=== PATIENT | male | born 1950 | race Caucasian/White ===

== ENCOUNTER 2016-11-02 10:16 | Day surgery (SDC) | payer BC ==
[2016-10-28 09:29] VITALS: BMI 30.2
[~2016-11-02 10:16] MED LIST: LACTATED RINGERS 1,000 ML IV SCH
[2016-11-02] MEDS ORDERED: LIDOCAINE 1% 20 ML VIAL (10MG/ML) FOR IV START INTRADERMA ONE (11:00)
[2016-11-02 11:15] VITALS: RESP 16; TEMP 97.8
[2016-11-02] MEDS ORDERED: PROPOFOL 10 MG/ML 20 ML VIAL IV ONE (12:14)
--- NOTE | 2016-11-02 12:14 | P.GSHP ---
History of Present Illness H&P Date: 11/02/16 Chief Complaint: colon cancer screening Patient here today for colonoscopy. His face she mentions anemia however the patient denies that there are any anemia issues. Denies rectal bleeding or melena. Last colonoscopy 10 years. No family history of colon cancer. Past Medical History Past Medical History: GERD/Reflux, Hyperlipidemia, Hypertension History of Any Multi-Drug Resistant Organisms: None Reported Past Surgical History: Hernia Repair, Orthopedic Surgery Additional Past Surgical History / Comment(s): LEFT LEG ORIF WITH METAL, Past Anesthesia/Blood Transfusion Reactions: No Reported Reaction Past Psychological History: No Psychological Hx Reported Smoking Status: Former smoker Past Alcohol Use History: Occasional Additional Past Alcohol Use History / Comment(s): SMOKED 1PPD FOR 6-7YRS WHEN IN 20'S Past Drug Use History: None Reported - Past Family History Mother Family Medical History: No Reported History Medications and Allergies Home Medications Medication Instructions Recorded Confirmed Type Atorvastatin [Lipitor] 20 mg PO DAILY 08/06/15 11/02/16 History Lisinopril [Zestril] 10 mg PO DAILY 08/06/15 11/02/16 History Pantoprazole Sodium [Protonix] 40 mg PO DAILY 08/06/15 11/02/16 History Allergies Allergy/AdvReac Type Severity Reaction Status Date / Time No Known Allergies Allergy Verified 10/28/16 09:26 Surgical - Exam Vital Signs Temp Pulse Resp BP Pulse Ox 97.8 F 52 L 16 171/88 96 11/02/16 11:13 11/02/16 11:13 11/02/16 11:13 11/02/16 11:13 11/02/16 11:13 Physical exam: General: Well-developed, well-nourished HEENT: Normocephalic, sclerae nonicteric Abdomen: Nontender, nondistended Extremities: No edema Neuro: Alert and oriented Assessment and Plan (1) Colon cancer screening Narrative/Plan: Will proceed with colonoscopy today. Associated risks were reviewed. Status: Acute
--- NOTE | 2016-11-02 12:41 | P.PCN ---
Date of Procedure: 11/02/16 Procedure(s) Performed: PREOPERATIVE DIAGNOSIS: Screening POSTOPERATIVE DIAGNOSIS: Ascending colon polyp PROCEDURE: Colonoscopy with snare polypectomy ANESTHESIA: MAC SURGEON: Tyler Vera M.D. SPECIMENS: Polyp ENDOSCOPIC PROCEDURE: The patient was placed on the endoscopy table in the left decubitus position. The Olympus colonoscope was inserted into the anus and passed under direct visualization to the base of the cecum. The appendiceal orifice was visualized. From that point the scope was slowly withdrawn inspecting all surfaces carefully. There were no neoplastic inflammatory or polypoid lesions throughout the cecum. In the mid ascending colon a small polyp was identified and removed using the snare with cautery technique. The remainder of the ascending, transverse, descending, sigmoid and rectum appeared normal. There was no diverticulosis noted. Digital rectal examination was normal. The patient was taken to the recovery room in stable condition per anesthesia guidelines. RECOMMENDATIONS: Await biopsy results. Anticipate follow-up colonoscopy 5 years.
[2016-11-02 13:54] VITALS: BP 149/80; PULSE 42
== END 2016-11-02 13:46 | disposition home or self-care (01) ==
LOC: ORWHC2ENDO 10:16
PROVIDERS: ATTEND Surgery
DX: Z12.11 Encounter for screening for malignant neoplasm of colon (principal); D12.2 Benign neoplasm of ascending colon; K21.9 Gastro-esophageal reflux disease without esophagitis; I10 Essential (primary) hypertension; E78.5 Hyperlipidemia, unspecified; Z79.899 Other long term (current) drug therapy; Z87.891 Personal history of nicotine dependence
CPT/HCPCS: 88305; 45385; J2704; 99153

== ENCOUNTER 2017-05-22 09:35 | Emergency (ER) | payer MEDICARE, OTHER ==
[2017-05-22 09:38] VITALS: TEMP 97.9
--- NOTE | 2017-05-22 10:26 | ED ---
Recheck HPI - General Chief Complaint: Recheck/Abnormal Lab/Rx Stated Complaint: hypertension Time Seen by Provider: 05/22/17 09:45 Source: patient, RN notes reviewed Mode of arrival: ambulatory Limitations: no limitations - History of Present Illness Initial Comments: This is a 67-year-old male who presents with complaints of elevated blood pressure. He recently had a blood pressure cuff he has been taking it recently and has noted that his been going up. He was notably elevated this morning. He denies any headache dizziness blurry vision nausea vomiting sweats or other symptoms. He is on lisinopril 10 mg daily has been taking 2 tablets last several days. He states is nothing new in his diet or and his daily activity he does drink beer and cocktails not infrequently does drink 1-2 cups of coffee per day he does not smoke. He denies any chest pain from his breath ears chills sweats or other symptoms no focal weakness no headache no blurry vision. - Related Data Home Medications Medication Instructions Recorded Confirmed Lisinopril [Zestril] 10 mg PO DAILY 08/06/15 05/22/17 Pantoprazole Sodium [Protonix] 40 mg PO DAILY 08/06/15 05/22/17 Atorvastatin [Lipitor] 10 mg PO Q48H 05/22/17 05/22/17 Fenofibrate 160 mg PO Q48H 05/22/17 05/22/17 methylPREDNISolone Dose Pack See Taper PO DAILY 05/22/17 05/22/17 [Medrol Dose Pack] Allergies Allergy/AdvReac Type Severity Reaction Status Date / Time No Known Allergies Allergy Verified 05/22/17 10:28 Review of Systems ROS Statement: Those systems with pertinent positive or pertinent negative responses have been documented in the HPI. ROS Other: All systems not noted in ROS Statement are negative. Past Medical History Past Medical History: GERD/Reflux, Hyperlipidemia, Hypertension History of Any Multi-Drug Resistant Organisms: None Reported Past Surgical History: Hernia Repair, Orthopedic Surgery Additional Past Surgical History / Comment(s): LEFT LEG ORIF WITH METAL, Past Anesthesia/Blood Transfusion Reactions: No Reported Reaction Past Psychological History: No Psychological Hx Reported Smoking Status: Former smoker Past Alcohol Use History: Occasional Past Drug Use History: None Reported - Past Family History Mother Family Medical History: No Reported History General Exam - General Exam Comments Initial Comments: This is a well-developed well-nourished awake alert oriented times 3 male Limitations: no limitations General appearance: alert, in no apparent distress Head exam: Present: atraumatic, normocephalic, normal inspection Eye exam: Present: normal appearance, PERRL, EOMI. Absent: scleral icterus, conjunctival injection, periorbital swelling ENT exam: Present: normal exam, mucous membranes moist Neck exam: Present: normal inspection. Absent: tenderness, meningismus, lymphadenopathy Respiratory exam: Present: normal lung sounds bilaterally. Absent: respiratory distress, wheezes, rales, rhonchi, stridor Cardiovascular Exam: Present: regular rate, normal rhythm, normal heart sounds. Absent: systolic murmur, diastolic murmur, rubs, gallop, clicks GI/Abdominal exam: Present: soft, normal bowel sounds. Absent: distended, tenderness, guarding, rebound, rigid Extremities exam: Present: normal inspection, full ROM, normal capillary refill. Absent: tenderness, pedal edema, joint swelling, calf tenderness Back exam: Present: normal inspection Neurological exam: Present: alert, oriented X3, CN II-XII intact Psychiatric exam: Present: normal affect, normal mood Skin exam: Present: warm, dry, intact, normal color. Absent: rash Course Vital Signs 05/22/17 05/22/17 05/22/17 09:36 09:59 11:21 Temperature 97.9 F Pulse Rate 56 L 53 L 50 L Respiratory 18 20 16 Rate Blood Pressure 234/100 206/102 175/95 O2 Sat by Pulse 97 99 99 Oximetry 05/22/17 12:38 Temperature Pulse Rate 45 L Respiratory 16 Rate Blood Pressure 167/85 O2 Sat by Pulse 96 Oximetry Medical Decision Making - Medical Decision Making I did discuss findings the patient has . Patient is feeling improved his blood pressure has improved after IV fluids. He will be discharge is follow-up with his doctor and return when necessary we did discuss timing of blood pressure that was initially at home. - Lab Data Result diagrams: 05/22/17 10:15 05/22/17 10:15 Lab Results 05/22/17 05/22/17 05/22/17 Range/Units 10:15 10:15 10:15 WBC 9.7 (3.8-10.6) k/uL RBC 4.83 (4.30-5.90) m/uL Hgb 14.6 (13.0-17.5) gm/dL Hct 42.3 (39.0-53.0) % MCV 87.6 (80.0-100.0) fL MCH 30.2 (25.0-35.0) pg MCHC 34.5 (31.0-37.0) g/dL RDW 12.6 (11.5-15.5) % Plt Count 300 (150-450) k/uL Neutrophils % 84 % Lymphocytes % 10 % Monocytes % 5 % Eosinophils % 1 % Basophils % 0 % Neutrophils # 8.1 H (1.3-7.7) k/uL Lymphocytes # 1.0 (1.0-4.8) k/uL Monocytes # 0.5 (0-1.0) k/uL Eosinophils # 0.1 (0-0.7) k/uL Basophils # 0.0 (0-0.2) k/uL Sodium 142 (137-145) mmol/L Potassium 4.5 (3.5-5.1) mmol/L Chloride 107 (98-107) mmol/L Carbon Dioxide 24 (22-30) mmol/L Anion Gap 11 mmol/L BUN 20 (9-20) mg/dL Creatinine 1.06 (0.66-1.25) mg/dL Est GFR (MDRD) Af Amer >60 (>60 ml/min/1.73 sqM) Est GFR (MDRD) Non-Af >60 (>60 ml/min/1.73 sqM) Glucose 112 H (74-99) mg/dL Calcium 9.7 (8.4-10.2) mg/dL Magnesium 2.1 (1.6-2.3) mg/dL Total Bilirubin 0.5 (0.2-1.3) mg/dL AST 25 (17-59) U/L ALT 43 (21-72) U/L Alkaline Phosphatase 68 (38-126) U/L Total Creatine Kinase 63 (55-170) U/L CK-MB (CK-2) 2.2 (0.0-2.4) ng/mL CK-MB (CK-2) Rel Index 3.5 Troponin I <0.012 (0.000-0.034) ng/mL Total Protein 7.3 (6.3-8.2) g/dL Albumin 4.5 (3.5-5.0) g/dL Amylase <30 L (30-110) U/L TSH 0.329 L (0.465-4.680) mIU/L Free T4 0.84 (0.78-2.19) ng/dL Urine Color Urine Appearance (Clear) Urine pH (5.0-8.0) Ur Specific [place] (1.001-1.035) Urine Protein (Negative) Urine Glucose (UA) (Negative) Urine Ketones (Negative) Urine Blood (Negative) Urine Nitrite (Negative) Urine Bilirubin (Negative) Urine Urobilinogen (<2.0) mg/dL Ur Leukocyte Esterase (Negative) 05/22/17 Range/Units 13:07 WBC (3.8-10.6) k/uL RBC (4.30-5.90) m/uL Hgb (13.0-17.5) gm/dL Hct (39.0-53.0) % MCV (80.0-100.0) fL MCH (25.0-35.0) pg MCHC (31.0-37.0) g/dL RDW (11.5-15.5) % Plt Count (150-450) k/uL Neutrophils % % Lymphocytes % % Monocytes % % Eosinophils % % Basophils % % Neutrophils # (1.3-7.7) k/uL Lymphocytes # (1.0-4.8) k/uL Monocytes # (0-1.0) k/uL Eosinophils # (0-0.7) k/uL Basophils # (0-0.2) k/uL Sodium (137-145) mmol/L Potassium (3.5-5.1) mmol/L Chloride (98-107) mmol/L Carbon Dioxide (22-30) mmol/L Anion Gap mmol/L BUN (9-20) mg/dL Creatinine (0.66-1.25) mg/dL Est GFR (MDRD) Af Amer (>60 ml/min/1.73 sqM) Est GFR (MDRD) Non-Af (>60 ml/min/1.73 sqM) Glucose (74-99) mg/dL Calcium (8.4-10.2) mg/dL Magnesium (1.6-2.3) mg/dL Total Bilirubin (0.2-1.3) mg/dL AST (17-59) U/L ALT (21-72) U/L Alkaline Phosphatase (38-126) U/L Total Creatine Kinase (55-170) U/L CK-MB (CK-2) (0.0-2.4) ng/mL CK-MB (CK-2) Rel Index Troponin I (0.000-0.034) ng/mL Total Protein (6.3-8.2) g/dL Albumin (3.5-5.0) g/dL Amylase (30-110) U/L TSH (0.465-4.680) mIU/L Free T4 (0.78-2.19) ng/dL Urine Color Light Yellow Urine Appearance Clear (Clear) Urine pH 6.0 (5.0-8.0) Ur Specific [place] 1.010 (1.001-1.035) Urine Protein Negative (Negative) Urine Glucose (UA) Negative (Negative) Urine Ketones Negative (Negative) Urine Blood Negative (Negative) Urine Nitrite Negative (Negative) Urine Bilirubin Negative (Negative) Urine Urobilinogen <2.0 (<2.0) mg/dL Ur Leukocyte Esterase Negative (Negative) - EKG Data -: EKG Interpreted by Ar EKG shows normal: sinus rhythm (Sinus bradycardia with a rate of 47 DC interval 182 QRS 106 daily since QTC of 452/[address]-T wave changes.) - Radiology Data Radiology results: report reviewed (I did review the imaging and reports no acute findings.), image reviewed Disposition Clinical Impression: Hypertension, Dehydration Disposition: HOME SELF-CARE Condition: Good Instructions: Hypertension (ED), Dehydration (ED) Referrals: Sina Brooks MD [Primary Care Provider] - 1-2 days Decision Time: 13:30
[2017-05-22 10:27] LABS: Basophils % (A) 0 %; CHCM 34.4; Eosinophils # (A) 0.1 k/uL (0-0.7); Eosinophils % (A) 1 %; HCT 42.3 % (39.0-53.0); HDW 2.46; HGB 14.6 gm/dL (13.0-17.5); Luc # (Auto) 0.06; Luc % (Auto) 1; Lymphocytes % (A) 10 %; MCH 30.2 pg (25.0-35.0); MCHC 34.5 g/dL (31.0-37.0); MCV 87.6 fL (80.0-100.0); Mean Platelet Volume 6.6; Monocytes # (A) 0.5 k/uL (0-1.0); Monocytes % (A) 5 %; Neutrophils # (A) 8.1 k/uL (1.3-7.7); Neutrophils % (A) 84 %; RBC 4.83 m/uL (4.30-5.90); RDW 12.6 % (11.5-15.5); WBC 9.7 k/uL (3.8-10.6); WBC (Perox) 9.78
[2017-05-22 10:46] LABS: ALT 43 U/L (21-72); AST 25 U/L (17-59); Alkaline Phosphatase 68 U/L (38-126); Amylase <30 U/L (30-110); Anion Gap 11 mmol/L; Blood Urea Nitrogen 20 mg/dL (9-20); Calcium 9.7 mg/dL (8.4-10.2); Carbon Dioxide 24 mmol/L (22-30); Chloride 107 mmol/L (98-107); Glucose 112 mg/dL (74-99); Magnesium 2.1 mg/dL (1.6-2.3); Non-African American GFR(MDRD) >60 (>60 ml/min/1.73 sqM); Potassium 4.5 mmol/L (3.5-5.1); Sodium 142 mmol/L (137-145); Total Bilirubin 0.5 mg/dL (0.2-1.3); Total Protein 7.3 g/dL (6.3-8.2)
[2017-05-22 10:54] LABS: Creatine Kinase 63 U/L (55-170)
[2017-05-22 11:06] LABS: Creatine Kinase MB 2.2 ng/mL (0.0-2.4); Troponin I <0.012 ng/mL (0.000-0.034)
[2017-05-22 11:26] VITALS: RESP 16
--- NOTE | 2017-05-22 11:38 | XR ---
EXAMINATION TYPE: XR chest 2V DATE OF EXAM: 05/22/2017 COMPARISON: NONE INDICATION: Cough hypertension TECHNIQUE: Frontal and lateral views of the chest are obtained. FINDINGS: The heart size is normal. The pulmonary vasculature is normal. The lungs are clear. IMPRESSION: 1. No acute pulmonary process.
[2017-05-22] MEDS ORDERED: SODIUM CHLORIDE 0.9% 1,000 ML IV STA (12:48)
[2017-05-22 13:58] LABS: Appearance,Urine Clear (Clear); Bilirubin,Urine Negative (Negative); Glucose,Urine (UA) Negative (Negative); Ketones,Urine Negative (Negative); Leukocyte Esterase,Urine Negative (Negative); Nitrite,Urine Negative (Negative); Protein,Urine Negative (Negative); UA Billing (MACRO vs. MICRO) CHEM; Urobilinogen,Urine <2.0 mg/dL (<2.0)
[2017-05-22 14:25] VITALS: BP 187/100; PULSE 50
== END 2017-05-22 14:45 | disposition home or self-care (01) ==
LOC: EC 09:35
DX: I10 Essential (primary) hypertension (principal); E86.0 Dehydration; E78.5 Hyperlipidemia, unspecified; K21.9 Gastro-esophageal reflux disease without esophagitis; Z87.891 Personal history of nicotine dependence; Z79.899 Other long term (current) drug therapy
CPT/HCPCS: 36415; 71020; 80053; 81003; 82150; 82550; 82553; 83735; 84439; 84443; 84484; 85025; 93005; 96360; 99284

== ENCOUNTER → 2017-09-28 | Outpatient (CLI) | payer MEDICARE, OTHER ==
[2017-09-28 12:22] LABS: Basophils % (A) 0 %; Eosinophils % (A) 0 %; HCT 40.2 % (39.0-53.0); HGB 13.4 gm/dL (13.0-17.5); Lymphocytes # (A) 1.3 k/uL (1.0-4.8); Lymphocytes % (A) 16 %; MCH 29.6 pg (25.0-35.0); MCHC 33.3 g/dL (31.0-37.0); Mean Platelet Volume 6.4; Monocytes # (A) 0.4 k/uL (0-1.0); Monocytes % (A) 5 %; Neutrophils # (A) 6.3 k/uL (1.3-7.7); Neutrophils % (A) 78 %; Platelet Count 280 k/uL (150-450); RBC 4.52 m/uL (4.30-5.90); RDW 12.3 % (11.5-15.5)
[2017-09-28 12:39] LABS: ALT 62 U/L (21-72); AST 28 U/L (17-59); Albumin 4.2 g/dL (3.5-5.0); Alkaline Phosphatase 65 U/L (38-126); Anion Gap 9 mmol/L; Blood Urea Nitrogen 33 mg/dL (9-20); Calcium 10.1 mg/dL (8.4-10.2); Carbon Dioxide 31 mmol/L (22-30); Chloride 104 mmol/L (98-107); Cholesterol 191 mg/dL (<200); Glucose 104 mg/dL (74-99); HDL Cholesterol 44 mg/dL (40-60); LDL Cholesterol,Calculated 103 mg/dL (0-99); Potassium 4.4 mmol/L (3.5-5.1); Sodium 144 mmol/L (137-145); Total Bilirubin 0.7 mg/dL (0.2-1.3); Total Protein 6.8 g/dL (6.3-8.2); Triglycerides 220 mg/dL (<150)
[2017-09-28 12:50] LABS: T4, Free (Free Thyroxine) 1.16 ng/dL (0.78-2.19)
[2017-09-28 13:04] LABS: PSA Annual Screen 1.75 ng/mL (0.00-4.00)
[2017-09-28 18:52] LABS: Hemoglobin A1C 5.8 % (4.0-6.0)
== END | disposition home or self-care (01) ==
LOC: LABWHC1 11:46
PROVIDERS: ATTEND Internal Medicine Geriatric Medicine
DX: Z00.00 Encounter for general adult medical examination without abnormal findings (principal); E78.00 Pure hypercholesterolemia, unspecified; N40.0 Benign prostatic hyperplasia without lower urinary tract symptoms; I10 Essential (primary) hypertension; R73.9 Hyperglycemia, unspecified; Z12.5 Encounter for screening for malignant neoplasm of prostate
CPT/HCPCS: 84439; 80061; 80053; 84443; 85025; 83036; 36415; G0103

== ENCOUNTER → 2019-11-12 | Outpatient (CLI) | payer MEDICARE, OTHER ==
--- NOTE | 2019-11-12 14:47 | XR ---
EXAMINATION TYPE: XR chest 2V DATE OF EXAM: 11/12/2019 COMPARISON: 05/22/2017 TECHNIQUE: PA and lateral views submitted. HISTORY: Cough FINDINGS: The lungs are clear and there is no pneumothorax, pleural effusion, or focal pneumonia. Heart size stable. No overt failure. Chronic right-sided rib deformities are seen. Biapical pleural thickening. IMPRESSION: 1. No acute process.
== END | disposition home or self-care (01) ==
LOC: RADXRMAIN 14:31
PROVIDERS: ATTEND Internal Medicine Geriatric Medicine
DX: J82 Pulmonary eosinophilia, not elsewhere classified (principal)
CPT/HCPCS: 71046

== ENCOUNTER → 2020-02-20 | Outpatient (CLI) | payer MEDICARE, OTHER ==
--- NOTE | 2020-02-20 11:09 | XR ---
EXAMINATION TYPE: XR cervical spine comp DATE OF EXAM: 02/20/2020 TECHNIQUE: Frontal, lateral, oblique, swimmers, and open mouth view of the cervical spine are obtaine d. HISTORY: M46.03 spinal enthesophathy COMPARISON: None FINDINGS: Soft tissue calcifications likely related carotid arteries and atherosclerotic changes. Mil d hypertrophic change of the vertebral column. Neural foramina remain patent. No compression deformit ies. Odontoid intact. IMPRESSION: 1. Mild multilevel degenerative disc disease. If there is concern for disc herniation consider MRI.
== END | disposition home or self-care (01) ==
LOC: RADXRMAIN 10:25
PROVIDERS: ATTEND Internal Medicine Geriatric Medicine
DX: M50.30 Other cervical disc degeneration, unspecified cervical region (principal)
CPT/HCPCS: 72050

== ENCOUNTER → 2020-03-16 | Outpatient (CLI) | payer MEDICARE, OTHER ==
--- NOTE | 2020-03-16 20:41 | MR ---
EXAMINATION TYPE: MR cervical spine wo/w con DATE OF EXAM: 03/16/2020 COMPARISON: None HISTORY: Neck pain, lt arm/hand numbness x 6 mos, hx melanoma 2019 CONTRAST: Performed utilizing 10 mL intravenous Gadavist gadolinium contrast. TECHNIQUE: Multiplanar multiecho imaging on a 3.0 Eliana magnet is performed through the cervical spin e. FINDINGS: The craniovertebral junction is normal. Vertebral body alignment is normal. Spinal cord signal appears preserved through its visualized course. C7-T1: No focal disc herniation or significant disc bulge is evident. No spinal canal stenosis or n eural foraminal stenosis is present. C6-7: No focal disc herniation or significant disc bulge is evident. No spinal canal stenosis or teagan ral foraminal stenosis is present. C5-6: Very subtle disc bulge is present centrally has anterior thecal sac contact and cord contact. N o cord deformity is evident. No AP spinal canal stenosis present. Neural foramen are patent.. C4-5: No focal disc herniation or significant disc bulge is evident. No spinal canal stenosis or teagan ral foraminal stenosis is present. C3-4: No focal disc herniation or significant disc bulge is evident. No spinal canal stenosis or teagan ral foraminal stenosis is present. C2-3: No focal disc herniation or significant disc bulge is evident. No spinal canal stenosis or teagan ral foraminal stenosis is present. Following intravenous contrast, no abnormal enhancement is evident IMPRESSIONS: 1. Subtle disc bulging may have cord contact at the C5-6 level. No stenosis is evident. 2. No suspicious enhancement to suggest metastatic disease.
== END | disposition home or self-care (01) ==
LOC: RADMRIMAIN 18:22
PROVIDERS: ATTEND Internal Medicine Geriatric Medicine
DX: M50.820 Other cervical disc disorders, mid-cervical region, unspecified level (principal)
CPT/HCPCS: 72156; A9585

== ENCOUNTER → 2020-09-14 | Outpatient (CLI) | payer MEDICARE, OTHER ==
--- NOTE | 2020-09-14 10:24 | CT ---
EXAMINATION TYPE: CT abdomen pelvis wo/w con DATE OF EXAM: 09/14/2020 COMPARISON: CT abdomen and pelvis March 08, 2012 HISTORY: Nabil. Inguinal Hernia, bilateral groin pain. History of right inguinal hernia repair surgery CT DLP: 2500.4 mGycm, Automated Exposure Control for Dose Reduction was Utilized. CONTRAST: CT scan of the abdomen and pelvis is performed with oral and without and with IV Contrast, patient in jected with 100 mL of Isovue 300. FINDINGS: LUNG BASES: No significant abnormality is appreciated. LIVER/GB: Visualized liver is diffusely low dense consistent with diffuse fatty infiltration. Liver s ize stable with prominent right hepatic lobe. PANCREAS: No significant abnormality is seen. SPLEEN: Stable small splenule in splenic hilum axial image 24. ADRENALS: No significant abnormality is seen. KIDNEYS: No renal stones identified bilaterally on noncontrast images. Symmetric cortical medullary uptake and excretion on postcontrast images without concerning solid or cystic renal mass or hydronep hrosis seen bilaterally. No intraluminal mass or calculus in the bladder. BOWEL: There is 4.3 cm duodenal diverticulum along fourth portion coronal image 50. No suspicious sma ll or large bowel dilatation. Oral contrast reaches level of distal ileum. PROSTATE/SEMINAL VESICLES: Facial scattered pelvic phleboliths. LYMPH NODES: No greater than 1cm abdominal or pelvic lymph nodes are appreciated. OSSEOUS STRUCTURES: Mild multilevel spurring. Scattered sclerotic endplate changes. OTHER: Wide mouth umbilical hernia containing fat and tiny mesenteric vessels Image 52 redemonstrated. Small fat-containing left inguinal hernia axial image 83 series 7 for reference redemonstrated. No re current right-sided hernia. IMPRESSION: Stable moderate-sized fat-containing umbilical hernia. Stable small sized fat-containing left inguinal hernia. No recurrent right-sided hernia.
== END | disposition home or self-care (01) ==
LOC: RADCTMAIN 07:13
PROVIDERS: ATTEND Orthopaedic Surgery Sports Medicine
DX: K40.90 Unilateral inguinal hernia, without obstruction or gangrene, not specified as recurrent (principal); K42.9 Umbilical hernia without obstruction or gangrene; K46.9 Unspecified abdominal hernia without obstruction or gangrene; Z48.02 Encounter for removal of sutures
CPT/HCPCS: 82565; 84520; 74178; 36415; Q9967 ×2

== ENCOUNTER → 2020-11-02 | Outpatient (CLI) | payer MEDICARE, OTHER ==
--- NOTE | 2020-11-02 15:13 | MR ---
EXAMINATION TYPE: MR hip RT wo con DATE OF EXAM: 11/02/2020 COMPARISON: Correlation CT 09/14/2020 HISTORY: 70-year-old male M25.551, RT hip and groin area pain TECHNIQUE: Multiplanar, multisequence images of the right hip were obtained without IV contrast. FINDINGS: No hip fracture or AVN. Patchy red marrow replacement is noted and can be seen with anemia, obesity, smoking, chronic disease. The sacrum is intact. Mild degenerative subchondral signal change within the inferior right SI joint. There is marked edema at the pubic symphysis with associated joint effusion. Given the low T1 signal here, difficult to exclude any underlying fracture of the fibula bodies. Some mild adjacent soft tiss ue edema is also noted. Otherwise, no suspicious bone marrow placement. Mild degenerative change suggested in both hips without significant hip joint effusion. Small tear of the superior acetabular labrum on the right. Prostate gland enlarged at 5.1 cm wide. There is a 1.8 cm cystic lesion of the left prostate central zone. No abnormal fluid collection otherwise seen in the pelvis or pelvic lymphadenopathy. The rectus femoris origins are intact. Tiny intrasubstance tear at the origin of the left hamstrings origin and a slightly larger 8 mm intrasubstance tear at the right hamstrings origin. Some increased signal at the bilateral gluteal insertion suggesting tendinosis.. Symmetric course, caliber, and signal intensity of the sciatic nerves. IMPRESSION: 1. Pronounced marrow edema involving the pubic symphysis with associated joint effusion and mild surr ounding soft tissue swelling. Correlate for possible sprain of the pubic symphysis or injury with bon e bruises or subtle nondisplaced fracture of the pubic bodies. No displaced fracture is seen. 2. Mild degenerative change of both hips. Mild degenerative change right SI joint. 3. Prostatomegaly of 5.1 cm wide with a 1.8 cm cyst of the left prostate central zone. Findings sugge st BPH.
== END | disposition home or self-care (01) ==
LOC: RADMRIMAIN 12:41
PROVIDERS: ATTEND Internal Medicine Geriatric Medicine
DX: M16.0 Bilateral primary osteoarthritis of hip (principal); R93.7 Abnormal findings on diagnostic imaging of other parts of musculoskeletal system; M46.1 Sacroiliitis, not elsewhere classified; M79.89 Other specified soft tissue disorders

== ENCOUNTER → 2022-03-04 | Outpatient (CLI) | payer MEDICARE, OTHER ==
[2022-03-04 14:22] LABS: Basophils # (A) 0.07 X 10*3/uL (0.00-0.10); Eosinophils # (A) 0.11 X 10*3/uL (0.04-0.35); Eosinophils % (A) 1.5 %; HGB 13.9 g/dL (13.0-17.0); Immature Grans, Automated 0.7 %; Lymphocytes # (A) 1.41 X 10*3/uL (0.90-5.00); Lymphocytes % (A) 19.4 %; MCH 29.3 pg (27.0-32.0); MCHC 32.3 g/dL (32.0-37.0); MCV 90.5 fL (80.0-97.0); Mean Platelet Volume 9.7 fL (9.5-12.2); Monocytes # (A) 0.68 X 10*3/uL (0.20-1.00); Monocytes % (A) 9.4 %; NRBC Per 100 WBC 0 /100 WBCS (0.0-0.0); Neutrophils # (A) 4.94 X 10*3/uL (1.80-7.70); Platelet Count 280 X 10*3/uL (140-440); RBC 4.75 X 10*6/uL (4.40-5.60); WBC 7.26 X 10*3/uL (4.50-10.00)
[2022-03-04 14:57] LABS: ALT 28 U/L (10-49); AST 19 U/L (14-35); African American GFR (CKD) 78.1 (60.0-200.0); Albumin 4.6 g/dL (3.8-4.9); Albumin/Globulin Ratio 2.21 (1.60-3.17); Alkaline Phosphatase 79 U/L (41-126); BUN/Creat Ratio 13.33 Ratio (12.00-20.00); Blood Urea Nitrogen 14.8 mg/dL (9.0-27.0); Calcium 9.6 mg/dL (8.7-10.3); Carbon Dioxide 26.8 mmol/L (20.0-27.5); Chloride 103 mmol/L (96-109); Chol/HDL Ratio 4.43 Ratio; Globulin 2.1 g/dL (1.6-3.3); Glucose 115 mg/dL (70-110); LDL Cholesterol,Calculated 107.3 mg/dL (0.0-131.0); Non-African American GFR(CKD) 67.4 (60.0-200.0); Potassium 4.4 mmol/L (3.5-5.5); Sodium 141 mmol/L (135-145); Total Protein 6.7 g/dL (6.2-8.2)
== END | disposition home or self-care (01) ==
LOC: LABWHC1 08:51
PROVIDERS: ATTEND Internal Medicine Geriatric Medicine
DX: C90.00 Multiple myeloma not having achieved remission (principal); N18.9 Chronic kidney disease, unspecified; E78.2 Mixed hyperlipidemia
CPT/HCPCS: 36415; 80053; 80061; 84443; 85025

== ENCOUNTER → 2022-12-15 | Outpatient (CLI) | payer MEDICARE, OTHER ==
--- NOTE | 2022-12-15 14:11 | XR ---
EXAMINATION TYPE: XR chest 2V DATE OF EXAM: 12/15/2022 COMPARISON: NONE TECHNIQUE: PA and lateral views submitted. HISTORY: Sinus infection FINDINGS: The lungs are clear and there is no pneumothorax, pleural effusion, or focal pneumonia. Heart size normal and no overt failure. Osseous structures demonstrate chronic rib fracture noted on the right. Atherosclerotic change aorta. IMPRESSION: 1. No acute process.
== END | disposition home or self-care (01) ==
LOC: RADXRMAIN 13:20
PROVIDERS: ATTEND Internal Medicine Geriatric Medicine
DX: J32.9 Chronic sinusitis, unspecified (principal); R05.9 Cough, unspecified
CPT/HCPCS: 71046

== ENCOUNTER → 2023-04-26 | Outpatient (CLI) | payer MEDICARE, OTHER ==
--- NOTE | 2023-04-26 10:14 | XR ---
EXAMINATION TYPE: XR cervical spine comp DATE OF EXAM: 04/26/2023 COMPARISON: NONE HISTORY: Pain TECHNIQUE: Four views are submitted. FINDINGS: The odontoid is intact. There are no compression deformities. The prevertebral soft tissue structur es are within normal limits. Mild facet arthropathy C3-C4. Calcifications in the soft tissues of the neck likely related to atherosclerotic change of the carotid arteries. Mild degenerative disc diseas e C3-C4. Neural foramina appear patent. IMPRESSION: 1. Mild degenerative disc disease C3-C4 with facet arthropathy recommend follow-up MRI..
== END | disposition home or self-care (01) ==
LOC: RADXRMAIN 08:47
PROVIDERS: ATTEND Internal Medicine Geriatric Medicine
DX: M50.31 Other cervical disc degeneration, high cervical region (principal); M47.812 Spondylosis without myelopathy or radiculopathy, cervical region
CPT/HCPCS: 72050

== ENCOUNTER → 2023-06-22 | Outpatient (CLI) | payer MEDICARE, OTHER ==
--- NOTE | 2023-06-22 16:04 | MR ---
EXAMINATION TYPE: MR cervical spine wo/w con DATE OF EXAM: 06/22/2023 COMPARISON: Cervical spine radiograph 04/26/2023, MRI cervical spine 03/16/2020 HISTORY: Neck pain into arms, numbness Rt hand and fingers TECHNIQUE: Multiplanar, multisequence images of the cervical spine were acquired without contrast and with 9 mL intravenous Gadavist gadolinium contrast. FINDINGS: Cervical segments are intact. There is normal alignment. Cervical spinal cord is of normal signal. Craniovertebral junction relationships are within normal limits. Multilevel disc desiccation. No ab normal contrast enhancement. C2-C3: No disc bulge/herniation or protrusion. No Canal stenosis. Foramina are patent bilaterally. C3-C4: No disc bulge/herniation or protrusion. No Canal stenosis. Uncovertebral joint hypertrophy b ilaterally. Mild bilateral neural foraminal narrowing. C4-C5: No disc bulge/herniation or protrusion. No Canal stenosis. Foramina are patent bilaterally. C5-C6: Broad-based disc bulge with mild effacement of the anterior thecal sac. Neural foramen are pat ent bilaterally. C6-C7: Broad-based disc bulge without significant central canal stenosis. Neural foramen are patent b ilaterally. C7-T1: No disc bulge/herniation or protrusion. No Canal stenosis. Foramina are patent bilaterally. IMPRESSION: 1. No evidence for disc herniation or significant central canal stenosis. 2. Mild degenerative disc disease and uncovertebral joint hypertrophy as described above. 3. No abnormal contrast enhancement.
== END | disposition home or self-care (01) ==
LOC: RADMRIMAIN 14:33
PROVIDERS: ATTEND Internal Medicine Geriatric Medicine
DX: M50.122 Cervical disc disorder at C5-C6 level with radiculopathy (principal); M47.22 Other spondylosis with radiculopathy, cervical region
CPT/HCPCS: 72156; A9585

== ENCOUNTER → 2023-09-05 | Outpatient (CLI) | payer MEDICARE, OTHER ==
--- NOTE | 2023-09-05 12:08 | CT ---
EXAMINATION TYPE: CT sinus wo con DATE OF EXAM: 09/05/2023 COMPARISON: None HISTORY: Abnormal panorex done at office, right sided maxillary area. Hx of melanoma of face. CT DLP: 644 mGycm. Automated Exposure Control for Dose Reduction was Utilized. TECHNIQUE: CT scan of the sinuses is performed without contrast, axial images are obtained, coronal r eformatted images are also reviewed. FINDINGS: There is mild mucosal thickening in the inferior aspects of both maxillary sinuses. There is a mucous retention cyst or polyp in the inferior aspect of the right maxillary sinus. The ethmoid frontal and sphenoid sinuses are well aerated. There are no air-fluid levels suggest acute sinusitis. The ostiomeatal complexes are patent bilaterally. The nasal cavity is intact. The intraorbital contents appear normal and symmetric. The mastoid air cells and middle ear cavities are well aerated. The osseous structures are intact. IMPRESSION: Mild to moderate chronic sinusitis involving the maxillary sinuses, right greater than left.
== END | disposition home or self-care (01) ==
LOC: RADCTMAIN 08:04
PROVIDERS: ATTEND Otolaryngology
DX: J32.0 Chronic maxillary sinusitis (principal); R22.1 Localized swelling, mass and lump, neck; Z85.820 Personal history of malignant melanoma of skin
CPT/HCPCS: 70486

== ENCOUNTER → 2024-01-31 | Outpatient (CLI) | payer MEDICARE, OTHER ==
[2024-01-31 10:35] LABS: Basophils # (A) 0.06 X 10*3/uL (0.00-0.10); Basophils % (A) 0.9 %; Eosinophils # (A) 0.09 X 10*3/uL (0.04-0.35); Eosinophils % (A) 1.3 %; HCT 44.5 % (39.6-50.0); HGB 14.5 g/dL (13.0-17.0); Lymphocytes # (A) 2.04 X 10*3/uL (0.90-5.00); Lymphocytes % (A) 30.3 %; MCHC 32.6 g/dL (32.0-37.0); Mean Platelet Volume 9.4 FL (9.5-12.2); Monocytes # (A) 0.55 X 10*3/uL (0.20-1.00); Monocytes % (A) 8.2 %; NRBC Per 100 WBC 0 X 10*3/uL (0.00-0.01); Neutrophils # (A) 3.97 X 10*3/uL (1.80-7.70); Neutrophils % (A) 58.9 %; Platelet Count 352 X 10*3/uL (140-440); RDW 12.9 % (11.5-14.5); WBC 6.74 X 10*3/uL (4.50-10.00)
[2024-01-31 11:07] LABS: ALT 20 U/L (10-49); AST 20 U/L (14-35); Albumin 4.6 g/dL (3.8-4.9); Alkaline Phosphatase 59 U/L (41-126); BUN/Creat Ratio 22.83 Ratio (12.00-20.00); Blood Urea Nitrogen 27.4 mg/dL (9.0-27.0); Calcium 9.9 mg/dL (8.7-10.3); Carbon Dioxide 23.6 mmol/L (21.6-31.8); Chloride 105 mmol/L (96-109); Creatine Kinase 98 U/L (35-257); Globulin 2.7 g/dL (1.6-3.3); Glucose 109 mg/dL (70-110); Potassium 4.8 mmol/L (3.5-5.5); Sodium 142 mmol/L (135-145); Total Bilirubin 0.4 mg/dL (0.3-1.2); Total Protein 7.3 g/dL (6.2-8.2); Uric Acid 7.3 mg/dL (3.7-8.7)
== END | disposition home or self-care (01) ==
LOC: LABWHC1 07:57
PROVIDERS: ATTEND Internal Medicine Geriatric Medicine
DX: E78.2 Mixed hyperlipidemia (principal); N18.2 Chronic kidney disease, stage 2 (mild); D47.2 Monoclonal gammopathy; R73.9 Hyperglycemia, unspecified
CPT/HCPCS: 36415; 80053; 80061; 82550; 83036; 84443; 84550; 85025

== ENCOUNTER → 2025-04-08 | Day surgery (SDC) | payer MEDICARE, OTHER ==
[2025-04-03 10:04] VITALS: BMI 28.5
[~2025-04-08] MED LIST changes: -LACTATED RINGERS 1,000 ML IV SCH; +LIDOCAINE 1% INJ 10MG/ML (20 ML MDV) ONE; +PROPOFOL 10 MG/ML 20 ML VIAL IV ONE
[2025-04-08] MEDS: LACTATED RINGERS 1,000 ML IV SCH (08:32)
[2025-04-08] MEDS: IV FLUID CONTINUATION 1,000 ML IV ONE ×2 (08:34→08:57)
--- NOTE | 2025-04-08 09:02 | P.GSHP ---
History of Present Illness H&P Date: 04/08/25 Chief Complaint: Screening 74-year-old male here for colonoscopy. Last colonoscopy 7 years ago. Patient had a small polyp at that time. Biopsies were benign. No bowel complaints. No family history of colon cancer. Past Medical History Past Medical History: GERD/Reflux, Hyperlipidemia, Hypertension History of Any Multi-Drug Resistant Organisms: None Reported Past Surgical History: Hernia Repair, Orthopedic Surgery Additional Past Surgical History / Comment(s): LEFT LEG ORIF WITH METAL, colonoscopy Past Anesthesia/Blood Transfusion Reactions: No Reported Reaction Additional Past Anesthesia/Blood Transfusion Reaction / Comment(s): no blood transfusion Smoking Status: Never smoker - Past Family History Mother Family Medical History: No Reported History Medications and Allergies Home Medications Medication Instructions Recorded Confirmed Type Pantoprazole Sodium [Protonix] 40 mg PO DAILY 08/06/15 04/08/25 History Fenofibrate 160 mg PO DAILY 05/22/17 04/08/25 History Amlodipine Besylate/Valsartan 1 each PO DAILY 04/03/25 04/08/25 History [Amlodipine Besylate/Valsartan 10-320 mg] Fish Oil/Dha/Epa [Fish Oil 1,200 1 tab PO DAILY 04/03/25 04/08/25 History mg Fish Oil] Gluc/Chond/MSM/D3/Hyal/Jonathan Bor 1 each PO DAILY 04/03/25 04/08/25 History [Move Free Plus MSM-Vit D3 Tab] Rosuvastatin [Crestor] 10 mg PO DAILY 04/03/25 04/08/25 History Allergies Allergy/AdvReac Type Severity Reaction Status Date / Time No Known Allergies Allergy Verified 04/08/25 08:22 Surgical - Exam Physical exam: General: Well-developed, well-nourished HEENT: Normocephalic, sclerae nonicteric Abdomen: Nontender, nondistended Extremities: No edema Neuro: Alert and oriented Assessment and Plan (1) Colon cancer screening Narrative/Plan: Will proceed with colonoscopy at this time. Current Visit: No Status: Acute Code(s): Z12.11 - ENCOUNTER FOR SCREENING FOR MALIGNANT NEOPLASM OF COLON SNOMED Code(s): 452729067
--- NOTE | 2025-04-08 09:16 | P.PCN ---
Date of Procedure: 04/08/25 Procedure(s) Performed: PREOPERATIVE DIAGNOSIS: Colon cancer screening with history of polyps POSTOPERATIVE DIAGNOSIS: Diverticulosis PROCEDURE: Colonoscopy ANESTHESIA: MAC SURGEON: Tyler Vera M.D. SPECIMENS: None ENDOSCOPIC PROCEDURE: The patient was placed on the endoscopy table in the left decubitus position. The Olympus colonoscope was inserted into the anus and passed under direct visualization to the base of the cecum. The appendiceal orifice was visualized. From that point the scope was slowly withdrawn inspecting all surfaces carefully. There were no neoplastic inflammatory or polypoid lesions throughout the cecum, ascending, transverse, descending, sigmoid and rectum. There was mild left-sided diverticulosis noted. Digital rectal examination was normal. The patient was taken to the recovery room in stable condition per anesthesia guidelines. RECOMMENDATIONS: Resume diet. Repeat colonoscopy 7 years.
[2025-04-08 09:25] VITALS: RESP 16
[2025-04-08 09:39] VITALS: BP 121/67; PULSE 47
[2025-04-08 09:54] VITALS: TEMP 97
== END ==
LOC: ORWHC2ENDO 08:04
PROVIDERS: ATTEND Surgery
DX: Z12.11 Encounter for screening for malignant neoplasm of colon (principal); K57.30 Diverticulosis of large intestine without perforation or abscess without bleeding; I10 Essential (primary) hypertension; E78.5 Hyperlipidemia, unspecified; K21.9 Gastro-esophageal reflux disease without esophagitis; Z79.899 Other long term (current) drug therapy; Z86.0100 Personal history of colon polyps, unspecified
CPT/HCPCS: J2003; J2704; G0121; 45378